=== PATIENT | female | born 1980 | race Hispanic/Latino ===

== ENCOUNTER 2018-11-12 16:13 | Emergency (ER) | payer SELFPAY ==
[2018-11-12] MEDS ORDERED: Ketorolac Tromethamine 30 MG/ML VIAL ONE (16:47)
[2018-11-12 17:15] LABS: Bacteria/HPF 2+ HPF (None Seen); Bilirubin Negative (Negative); Blood, Urine Trace (Negative); Clarity Turbid (Clear); Glucose, Urine (Dipstick) Normal (Negative); Leukocyte Negative Leu/uL (Negative); Nitrite 1+ (Negative); Pregnancy Test - Urine (BHCG) Negative (Negative); Protein, Urine (Dipstick) 10 mg/dL (Neg-Trace); Urobilinogen Normal mg/dL (Less than 2)
[2018-11-12 17:16] LABS: Pregu Control Background? CLEAR/WHITE (CLR/WHITE); Pregu Control Bar Appear? YES (CONTROL BAR); Specific Gravity 1.025 (1.002-1.036)
--- NOTE | 2018-11-12 17:44 | CT ---
CT LUMBAR SPINE WITHOUT CONTRAST: History: Back pain. FINDINGS/IMPRESSION: Vertebral body heights and disc heights are maintained. No fracture, subluxation, or bony destruction is seen. There is minimal vacuum disc phenomenon in the anterior inferior aspects of the L3-4 and L4 -5 discs. No focal disc herniation, central or neuroforaminal stenosis is seen. Mild disc bulges are noted at L4-5 and L5-S1 levels. POS: RO
== END 2018-11-12 18:20 | disposition home or self-care (01) ==
LOC: EDBD 16:13 → ERS 16:13
DX: M51.27 Other intervertebral disc displacement, lumbosacral region (principal)
CPT/HCPCS: 72131; 81003; 81015; 81025; 96372; J1885

== ENCOUNTER 2020-08-05 21:14 | Emergency (ER) | payer SELFPAY ==
[2020-08-05] MEDS ORDERED: Ibuprofen 200 MG TAB ONE (21:58)
== END 2020-08-06 00:10 | disposition home or self-care (01) ==
LOC: ERS 21:14
DX: S09.90XA Unspecified injury of head, initial encounter (principal); Y04.8XXA Assault by other bodily force, initial encounter
CPT/HCPCS: 70450